=== PATIENT | male | born 1975 | race Caucasian/White ===

== ENCOUNTER 2017-12-23 23:14 | Emergency (ER) | payer OTHER ==
[~2017-12-23] VITALS: Ht 180.3 cm; Wt 113.4 kg
[2017-12-23] MEDS ORDERED: LISINOPRIL20 MG PO (23:23)
[2017-12-23] MEDS ORDERED: ZESTORETIC 20-1 EAC1 PO (23:23)
[2017-12-24] MEDS ORDERED: BACTRIM DS TAB1 EACH PO (00:12)
== END 2017-12-24 00:30 | disposition home or self-care (01) ==
LOC: ER 23:14
DX: L02.413 Cutaneous abscess of right upper limb (principal); L03.113 Cellulitis of right upper limb; F17.210 Nicotine dependence, cigarettes, uncomplicated

== ENCOUNTER 2018-03-31 02:07 | Emergency (ER) | payer OTHER ==
[~2018-03-31] VITALS: Ht 180.3 cm; Wt 104.3 kg
[~2018-03-31 02:07] MED LIST: BACTRIM DS TAB1 EACH PO; LISINOPRIL20 MG PO; ZESTORETIC 20-1 EAC1 PO
[2018-03-31 02:26] VITALS: BP 151/106
[2018-03-31] MEDS ORDERED: GRISEOFULVIN500 MG PO (03:13)
[2018-03-31] MEDS ORDERED: TRAMADOL 50 MG50 MG PO (03:13)
[2018-03-31] MEDS ORDERED: NAPROSYN500 MG PO (03:13)
== END 2018-03-31 03:29 | disposition home or self-care (01) ==
LOC: ER 02:07
DX: S20.219A Contusion of unspecified front wall of thorax, initial encounter (principal); B35.6 Tinea cruris; F17.210 Nicotine dependence, cigarettes, uncomplicated; I10 Essential (primary) hypertension; X58.XXXA Exposure to other specified factors, initial encounter; Y92.89 Other specified places as the place of occurrence of the external cause; Y93.89 Activity, other specified; Y99.8 Other external cause status

== ENCOUNTER 2018-05-03 11:27 | Emergency (ER) | payer OTHER ==
[~2018-05-03] VITALS: Ht 180.3 cm; Wt 102.1 kg
[~2018-05-03 11:27] MED LIST changes: +GRISEOFULVIN500 MG PO; +NAPROSYN500 MG PO; +TRAMADOL 50 MG50 MG PO
[2018-05-03 11:30] VITALS: BP 137/100
[2018-05-03] MEDS ORDERED: KEFLEX500 M1 PO (12:09)
== END 2018-05-03 12:19 | disposition home or self-care (01) ==
LOC: ER 11:27
DX: L73.9 Follicular disorder, unspecified (principal); I10 Essential (primary) hypertension; F17.210 Nicotine dependence, cigarettes, uncomplicated

== ENCOUNTER 2018-09-01 23:56 | Emergency (ER) | payer OTHER ==
[~2018-09-01] VITALS: Ht 180.3 cm; Wt 108.9 kg
[~2018-09-01 23:56] MED LIST changes: +KEFLEX500 M1 PO
[2018-09-02 00:33] LABS: URINE BILIRUBIN NEGATIVE (Negative); URINE BLOOD TRACE (Negative); URINE CLARITY CLOUDY; URINE COLOR YELLOW; URINE GLUCOSE-RANDOM* NEGATIVE (Negative); URINE KETONES NEGATIVE (Negative); URINE NITRITE-REFLEX NEGATIVE (Negative); URINE PROTEIN (DIPSTICK) 1+ (Negative); URINE SPECIFIC GRAVITY 1.025 (1.005-1.035); URINE UROBILINOGEN 0.2 E.U./dl (0.2-1.0)
[2018-09-02 00:37] LABS: URINE LEUKOCYTES-REFLEX 1+ (Negative)
[2018-09-02 00:55] LABS: CASTS None Seen /LPF (None Seen); CRYSTALS None Seen /LPF (None Seen); SQUAMOUS None Seen /LPF (0-3); URINE WBC-REFLEX >25 Many /HPF (0-5)
[2018-09-02 00:56] LABS: URINE RBC 0-2 Rare /HPF (0-2)
[2018-09-02] MEDS ORDERED: CIPROFLOXACIN500 M1 PO (01:01)
== END 2018-09-02 01:20 | disposition home or self-care (01) ==
LOC: ER 23:56
PROVIDERS: Emergency Medicine
DX: A64 Unspecified sexually transmitted disease (principal); N39.0 Urinary tract infection, site not specified; F17.210 Nicotine dependence, cigarettes, uncomplicated; I10 Essential (primary) hypertension

== ENCOUNTER 2019-09-18 18:59 | Emergency (ER) | payer OTHER ==
[~2019-09-18] VITALS: Ht 180.3 cm; Wt 93.0 kg
[~2019-09-18 18:59] MED LIST changes: +CIPROFLOXACIN500 M1 PO
[2019-09-18 19:51] VITALS: BP 135/97
== END 2019-09-18 19:48 | disposition home or self-care (01) ==
LOC: ER 18:59
DX: S00.03XA Contusion of scalp, initial encounter (principal); I10 Essential (primary) hypertension; F17.210 Nicotine dependence, cigarettes, uncomplicated; W22.8XXA Striking against or struck by other objects, initial encounter; Y93.89 Activity, other specified; Y92.89 Other specified places as the place of occurrence of the external cause; Y99.8 Other external cause status